=== PATIENT | female | born 1960 | race Caucasian/White ===

== ENCOUNTER 2019-04-14 17:54 | Emergency (ER) | payer BC ==
[~2019-04-14] VITALS: Ht 157.5 cm; Wt 90.7 kg
--- NOTE | 2019-04-14 17:57 | NUR ---
Patient to ER bed 07 to gown for evaluation. Side rails up.
--- NOTE | 2019-04-14 18:01 | NUR ---
Patient arrived in the ED accompanied by her , c/o renetta that comes and goes since 04/05/2019. Stated she has been seen 2-3 different times and had taken Benadryl, prednisone but no relief. Patient is alert and oriented x4, respirations even and unlabored, denied any respiratory distress or pain at this time. VS WNL, patient is able to ambulate with steady gait, and speaking in full sentences. at bedside. Instructed to notify ED staff if symptoms worsen while waiting to be seen by a provider. Patient verbalized understanding.
[2019-04-14 18:04] VITALS: BP_SYST 129
--- NOTE | 2019-04-14 18:22 | NUR ---
DR ARIZA AT BEDSIDE FOR EVALUATION
[2019-04-14] MEDS ORDERED: EPINEPHrine 1 MG/ML AMP IM ONE (18:30)
--- NOTE | 2019-04-14 18:52 | NUR ---
Administered Epinephrine 0.3mg IM as ordered by Dr. Adkins. Patient tolerated the medication well.
--- NOTE | 2019-04-14 19:17 | NUR ---
Patients c/o of jitters, explained about the side effects of Epinephrine. MD made aware.
--- NOTE | 2019-04-14 19:18 | NUR ---
ER Dr. Adkins at bedside giving discharge instructions to the patient.
[2019-04-14 19:23] VITALS: BP_SYST 138
--- NOTE | 2019-04-14 19:25 | NUR ---
Patient given written and verbal discharge instructions and verbalizes understanding. ER MD discussed with patient the results and treatment provided. Patient in stable condition. ID arm band removed. Rx of Zyrtec given. Patient educated on pain management and to follow up with PMD. Pain Scale 0/10. Opportunity for questions provided and answered. Medication side effect fact sheet provided.
== END 2019-04-14 19:25 | disposition home or self-care (01) ==
LOC: SED 17:54
DX: L50.9 Urticaria, unspecified (principal); R56.9 Unspecified convulsions
CPT/HCPCS: 96372; 99283; J0171